=== PATIENT | female | born 1990 | race Caucasian/White ===

== ENCOUNTER 2022-04-12 14:47 | Emergency (ER) | payer MEDICAID, SELFPAY ==
[2022-04-12 14:48] VITALS: BP 145/83; PULSE 108; RESP 18; TEMP 37.2; O2SAT 98; BMI 29.8
--- NOTE | 2022-04-12 15:31 | ED.EYEPROB ---
HPI - Eye Problem General Chief complaint: Eye Problems <Amelie Renner NP - Last Filed: 04/12/22 18:33> Stated complaint: EYE ISSUE <Amelie Renner NP - Last Filed: 04/12/22 18:33> Time Seen by Provider: 04/12/22 15:04 <Amelie Renner NP - Last Filed: 04/12/22 18:33> Source: patient and family <Amelie Renner NP - Last Filed: 04/12/22 18:33> Mode of arrival: ambulatory <Amelie Renner NP - Last Filed: 04/12/22 18:33> Limitations: no limitations <Amelie Renner NP - Last Filed: 04/12/22 18:33> History of Present Illness HPI Narrative: this is a 32-year-old female who reports a left-sided headache behind her eye for the last 5 days with left ear pain and left facial pain with sinus pressure. Yesterday when she woke up she noticed area around her left eye was swollen and painful. She also reports some pain in the eye and when she moves her eye she feels that she has blurry vision in the peripheral field. No drainage from the eye, fevers, chills. Patient does not use any contacts. She does have history of astigmatism in is supposed to use corrective lenses but does not. She denies any history of migraines. She also noted a rash to the left side of the forehead which Is painful. No associated burning or itching of the rash <Amelie Renner NP - Last Filed: 04/12/22 18:33> Related Data Home medications: Previous Rx's Medication Instructions Recorded amoxicillin 875 mg-potassium 1 tab PO BID 10 days #20 tabs 04/12/22 clavulanate 125 mg tablet valacyclovir 1 gram tablet 1,000 mg PO BID #14 tabs 04/12/22 (Valtrex) <Amelie Renner NP - Last Filed: 04/12/22 18:33> Allergies/adverse reactions: Allergies Allergy/AdvReac Type Severity Reaction Status Date / Time sulfamethoxazole Allergy Unknown UNKNOWN Unverified 01/05/20 19:37 [From BACTRIM] trimethoprim [From BACTRIM] Allergy Unknown UNKNOWN Unverified 01/05/20 19:37 <Amelie Renner NP - Last Filed: 04/12/22 18:33> Review of Systems Review of Systems: Yes all other systems are reviewed and are negative <Amelie Renner NP - Last Filed: 04/12/22 18:33> Constitutional: Constitutional: Reports no additional constitutional complaints, Denies body ache(s), Denies chills, Denies fever(s), Reports headache(s) and Denies weakness <Amelie Renner NP - Last Filed: 04/12/22 18:33> Eyes: Eyes: Reports no additional eye complaints, Reports blurry vision, Denies change in vision, Denies eye discharge and Reports eye pain <Amelei Renner NP - Last Filed: 04/12/22 18:33> ENT: Reports system reviewed and no additional complaints, except as documented, Denies dizziness, Reports otalgia, Reports headache(s), Reports nasal congestion, Denies nasal discharge, Denies neck pain, Reports sinus pain and Reports sinus pressure <Amelie Renner NP - Last Filed: 04/12/22 18:33> Cardiovascular: Cardiovascular: Reports no additional cardiovascular complaints, Denies chest pain, Denies leg edema and Denies dyspnea <Amelie Renner NP - Last Filed: 04/12/22 18:33> Respiratory: Respiratory: Reports no additional respiratory complaints, Denies cough and Denies dyspnea <Amelie Renner NP - Last Filed: 04/12/22 18:33> Gastrointestinal: Gastrointestinal: Reports no additional gastrointestinal complaints, Denies abdominal pain, Denies diarrhea, Denies nausea and Denies vomiting <Amelie Renner NP - Last Filed: 04/12/22 18:33> Genitourinary: Genitourinary: Reports no additional female genitourinary complaints and Denies urinary incontinence <Amelie Renner NP - Last Filed: 04/12/22 18:33> Musculoskeletal: Musculoskeletal: Reports no additional musculoskeletal complaints, Denies back pain, Denies arthralgias, Denies joint swelling, Denies neck pain, Denies numbness and Denies tingling <Amelie Renner NP - Last Filed: 04/12/22 18:33> Integumentary/Breasts: Skin/Breast: Reports system reviewed and no additional complaints, except as docu and Reports rash <Amelie Renner NP - Last Filed: 04/12/22 18:33> Neurologic: Reports system reviewed and no additional complaints, except as documented, Denies Abnormal speech present, Denies dizziness, Reports headache(s), Denies numbness, Denies tingling and Denies weakness <Amelie Renner NP - Last Filed: 04/12/22 18:33> [facility] Past Medical History Attestation statement: The following information was validated with the patient. <Amelie Renner NP - Last Filed: 04/12/22 18:33> Source: old records reviewed and nursing notes reviewed <Amelie Renner NP - Last Filed: 04/12/22 18:33> Social History Social History: Social History Smoked in Last 30 Days: Yes Advance Directives: No Advance Directives Information Provided: Yes Patient : No <Amelie Renner NP - Last Filed: 04/12/22 18:33> Physical Exam Vital Signs: Vital Signs: Last Vital Signs Temp 98.6 F 04/12/22 18:58 Pulse 100 04/12/22 18:58 Resp 18 04/12/22 18:58 BP 142/82 H 04/12/22 18:58 Pulse Ox 98 04/12/22 18:58 O2 Del Method 04/12/22 18:58 BMI result Body Mass Index 29.8 <Amelie Renner NP - Last Filed: 04/12/22 18:33> Vital Signs: Last Vital Signs Temp 98.6 F 04/12/22 18:58 Pulse 100 04/12/22 18:58 Resp 18 04/12/22 18:58 BP 142/82 H 04/12/22 18:58 Pulse Ox 98 04/12/22 18:58 O2 Del Method 04/12/22 18:58 BMI result Body Mass Index 29.8 <MARCIA Dean - Last Filed: 04/12/22 20:41> Vital Signs: Last Vital Signs Temp 98.6 F 04/12/22 18:58 Pulse 100 04/12/22 18:58 Resp 18 04/12/22 18:58 BP 142/82 H 04/12/22 18:58 Pulse Ox 98 04/12/22 18:58 O2 Del Method 04/12/22 18:58 BMI result Body Mass Index 29.8 <Stepan García MD - Last Filed: 04/12/22 21:04> Const: General: cooperative, healthy appearing, comfortable and no acute distress <Amelie Renner NP - Last Filed: 04/12/22 18:33> Orientation/consciousness: patient oriented x3 <Amelie Renner NP - Last Filed: 04/12/22 18:33> Limitations: no limitations <Amelie Renner NP - Last Filed: 04/12/22 18:33> HEENT: Head: Yes normal to inspection <Amelie Renner NP - Last Filed: 04/12/22 18:33> Ears: hearing grossly normal bilaterally and TM's normal bilaterally <Amelie Renner NP - Last Filed: 04/12/22 18:33> General nose exam: Normal external nose present <Amelie Renner NP - Last Filed: 04/12/22 18:33> Face and sinus: Yes normal facial exam <Amelie Renner NP - Last Filed: 04/12/22 18:33> Face images: 1. slight swelling with sinus TTP 2. Clustered vesicle like rash <Amelie Renner NP - Last Filed: 04/12/22 18:33> Mouth: Normal oral and palatal mucosa present <Amelie Renner NP - Last Filed: 04/12/22 18:33> Throat: Yes posterior oropharynx normal, Yes tonsils normal and Yes uvula midline <Amelie Renner NP - Last Filed: 04/12/22 18:33> Eyes: Other: vision 20/25 left, 20/20 right IOP 20 bilaterally <Amelie Renner NP - Last Filed: 04/12/22 18:33> General: appearance normal, both eyes and all related structures <Amelie Renner NP - Last Filed: 04/12/22 18:33> Alignment and Position: alignment normal <Amelie Renner NP - Last Filed: 04/12/22 18:33> Periorbital: periorbital findings normal <Amelie Renner NP - Last Filed: 04/12/22 18:33> Eyelids: Yes eyelids normal <Amelie Renner LIBRARY TECHNICAL ASSISTANT - Last Filed: 04/12/22 18:33> Conjunctivae: conjunctivae normal <Amelie Renner NP - Last Filed: 04/12/22 18:33> Sclerae: scleral abnormal left scleral injection <Amelie Renner LIBRARY TECHNICAL ASSISTANT - Last Filed: 04/12/22 18:33> Corneas: corneas normal and fluorescein used (no corneal abrasion/FB or herpes zoster opthalmacus noted ) <Amelie Renner LIBRARY TECHNICAL ASSISTANT - Last Filed: 04/12/22 18:33> Pupils: Equal, round and reactive pupils present <Amelie Renner LIBRARY TECHNICAL ASSISTANT - Last Filed: 04/12/22 18:33> EOM: EOMs intact bilaterally <Amelie Renner NP - Last Filed: 04/12/22 18:33> Direct Ophthalmoscopy: normal light reflex, no photophobia and anterior chamber normal <Amelie Renner NP - Last Filed: 04/12/22 18:33> Neck: Neck: Yes normal visual inspection, Yes full ROM, Yes no lymphadenopathy and Yes no meningeal signs <Amelie Renner NP - Last Filed: 04/12/22 18:33> Chest: Chest palpation & inspection: normal inspection of the chest <Amelie Renner NP - Last Filed: 04/12/22 18:33> Resp: Effort & Inspection: normal respiratory effort <Amelie Renner NP - Last Filed: 04/12/22 18:33> Auscultation: clear to auscultation bilaterally <Amelie Renner NP - Last Filed: 04/12/22 18:33> Cardio: Rate: regular rate <Amelie Renner LIBRARY TECHNICAL ASSISTANT - Last Filed: 04/12/22 18:33> Rhythm: regular rhythm <Amelie Renner LIBRARY TECHNICAL ASSISTANT - Last Filed: 04/12/22 18:33> Peripheral pulses: Peripheral pulses 2+ throughout <Amelie Renner LIBRARY TECHNICAL ASSISTANT - Last Filed: 04/12/22 18:33> GI: Inspection: Yes normal to inspection <Amelie Renner LIBRARY TECHNICAL ASSISTANT - Last Filed: 04/12/22 18:33> Palpation (GI): Soft to palpation and nontender <Amelie Renner LIBRARY TECHNICAL ASSISTANT - Last Filed: 04/12/22 18:33> Auscultation: normal bowel sounds <Amelie Renner NP - Last Filed: 04/12/22 18:33> Back/Spine/Pelvis: Thoracic/Lumbar Spine: thoracic and lumbar spine normal to inspection <Amelie Renner NP - Last Filed: 04/12/22 18:33> Skin: General skin exam: no rashes or lesions noted <Amelie Renner NP - Last Filed: 04/12/22 18:33> Neuro: General: patient oriented x3, moves all extremities, no meningeal signs, no focal motor deficits and normal sensation to monofilament <Amelie Renner LIBRARY TECHNICAL ASSISTANT - Last Filed: 04/12/22 18:33> Cranial nerves: Yes CN's II-XII intact bilaterally, Yes Equal, round and reactive pupils present, Yes Bilaterally intact EOM present, Yes Nystagmus not present, Yes Normal facial strength present and Yes Midline tongue present <Amelie Renner LIBRARY TECHNICAL ASSISTANT - Last Filed: 04/12/22 18:33> Cognition (Neuro): normal cognition <Amelie Renner NP - Last Filed: 04/12/22 18:33> Speech: No Abnormal speech present <Amelie Renner LIBRARY TECHNICAL ASSISTANT - Last Filed: 04/12/22 18:33> Gait exam (Neuro): Normal gait present <Amelie Renner NP - Last Filed: 04/12/22 18:33> Motor exam (neuro): 5/5 motor strength present throughout <Amelie Renner NP - Last Filed: 04/12/22 18:33> Sensory Exam: Normal double simultaneous stimulation for sensation <Amelie Renner NP - Last Filed: 04/12/22 18:33> Extrem: General: Yes normal to inspection <Amelie Renner NP - Last Filed: 04/12/22 18:33> Course Course Course Narrative: patient has an exam consistent with herpes zoster over the left facial area. Will prescribe Valtrex for 7 days. She has no evidence on her eye exam of any herpetic lesion in the eye. There is no evidence of abrasion, foreign body or ulceration of the cornea. Pressures are normal. Improvement of symptoms (SMALLS, eye pain) after some fluids and Toradol. Also consider orbital cellulitis as patient has complaints of sinus pressure and sinus pain, congestion and ear pain on the same affected side as well as some visual change with eye movement. She has normal EOM. She has normal vision in all avalos. She does report some blurriness when she moves her eyes around. CT of the orbits is pending to rule out orbital cellulitis. <Amelie Renner NP - Last Filed: 04/12/22 18:33> Reevaluation(s) Reevaluation #1: 1830-Sign out to Dayne KENNEDY pending imaging <Amelie Renner NP - Last Filed: 04/12/22 18:33> Time: 20:07 <MARCIA Dean - Last Filed: 04/12/22 20:41> Reevaluation #2: CT scan concerning for possible postseptal vs orbital cellulitis however patient does have discomfort with eye movements which is concerning for orbital cellulitis. Pain with eye movements worse with up and down movements. Ordered vanco and ceftriaxone for coverage. Hospitalist here do not feel comfortable with this patient being admitted here. Call out to [facility] who states they are closed for transfer. Will call out to Jessica <MARCIA Dean - Last Filed: 04/12/22 20:41> Time: 20:19 <MARCIA Dean - Last Filed: 04/12/22 20:41> Reevaluation #3: Jessica has no ears, nose and throat coverage. This case was discussed with my attending Dr. García who evaluated the patient, he does not feel as though this warrants IV antibiotics. He recommends Discharging patient home with strict return precautions and having her follow-up with eye doctor. Patient will be discharged home on Augmentin, will give strict return precautions Educated patient on diagnosis and treatment plan, answered all question, patient verbalizes understanding. At this time patient will be discharged home, advised to return with new or worsening symptoms. Educated on worrisome signs and symptoms and when to return. At this time I feel comfortable discharge home. <MARCIA Dean - Last Filed: 04/12/22 20:41> Time: 20:40 <MARCIA Dean - Last Filed: 04/12/22 20:41> Medications Administered Discontinued Medications Generic Name Dose Route Start Last Admin Trade Name Freq PRN Reason Stop Dose Admin Fluorescein Sodium 1 strip 04/12/22 15:23 04/12/22 17:34 Fluorescein Sodium Strip EYE-LEFT 04/12/22 15:24 1 strip ONCE ONE Administration Sodium Chloride 1,000 mls @ 999 mls/hr 04/12/22 15:23 04/12/22 15:49 Ns IV 04/12/22 16:23 999 mls/hr .Q1H1M STA Administration Ceftriaxone Sodium 2 gm/ 50 mls @ 100 mls/hr 04/12/22 20:15 04/12/22 21:01 Sodium Chloride IV 04/12/22 20:44 100 mls/hr ONCE ONE Administration Iohexol 100 ml 04/12/22 18:38 04/12/22 18:38 Iohexol 350 Mg/Ml 100 Ml Infus..Btl IV 04/12/22 18:39 85 ml ONCE ONE Administration Ketorolac Tromethamine 30 mg 04/12/22 15:23 04/12/22 16:08 Ketorolac Tromethamine 30 Mg/Ml Vial IVPUSH 04/12/22 15:24 30 mg ONCE ONE Administration Tetracaine HCl 1 drop 04/12/22 15:23 04/12/22 17:33 Tetracaine Hcl/Pf 0.5% Oph Charley 4 Ml Drops EYE-LEFT 04/12/22 15:24 1 drop ONCE ONE Administration Valacyclovir HCl 1,000 mg 04/12/22 20:20 04/12/22 21:02 Valacyclovir Hcl 1,000 Mg Tablet PO 04/12/22 20:21 1,000 mg ONCE ONE Administration <Amelie Renner NP - Last Filed: 04/12/22 18:33> Medications Administered Discontinued Medications Generic Name Dose Route Start Last Admin Trade Name Melvin PRN Reason Stop Dose Admin Fluorescein Sodium 1 strip 04/12/22 15:23 04/12/22 17:34 Fluorescein Sodium Strip EYE-LEFT 04/12/22 15:24 1 strip ONCE ONE Administration Sodium Chloride 1,000 mls @ 999 mls/hr 04/12/22 15:23 04/12/22 15:49 Ns IV 04/12/22 16:23 999 mls/hr .Q1H1M STA Administration Ceftriaxone Sodium 2 gm/ 50 mls @ 100 mls/hr 04/12/22 20:15 04/12/22 21:01 Sodium Chloride IV 04/12/22 20:44 100 mls/hr ONCE ONE Administration Iohexol 100 ml 04/12/22 18:38 04/12/22 18:38 Iohexol 350 Mg/Ml 100 Ml Infus..Btl IV 04/12/22 18:39 85 ml ONCE ONE Administration Ketorolac Tromethamine 30 mg 04/12/22 15:23 04/12/22 16:08 Ketorolac Tromethamine 30 Mg/Ml Vial IVPUSH 04/12/22 15:24 30 mg ONCE ONE Administration Tetracaine HCl 1 drop 04/12/22 15:23 04/12/22 17:33 Tetracaine Hcl/Pf 0.5% Oph Charley 4 Ml Drops EYE-LEFT 04/12/22 15:24 1 drop ONCE ONE Administration Valacyclovir HCl 1,000 mg 04/12/22 20:20 04/12/22 21:02 Valacyclovir Hcl 1,000 Mg Tablet PO 04/12/22 20:21 1,000 mg ONCE ONE Administration <Dayne Rollins PA - Last Filed: 04/12/22 20:41> Medications Administered Discontinued Medications Generic Name Dose Route Start Last Admin Trade Name Melvin PRN Reason Stop Dose Admin Fluorescein Sodium 1 strip 04/12/22 15:23 04/12/22 17:34 Fluorescein Sodium Strip EYE-LEFT 04/12/22 15:24 1 strip ONCE ONE Administration Sodium Chloride 1,000 mls @ 999 mls/hr 04/12/22 15:23 04/12/22 15:49 Ns IV 04/12/22 16:23 999 mls/hr .Q1H1M STA Administration Ceftriaxone Sodium 2 gm/ 50 mls @ 100 mls/hr 04/12/22 20:15 04/12/22 21:01 Sodium Chloride IV 04/12/22 20:44 100 mls/hr ONCE ONE Administration Iohexol 100 ml 04/12/22 18:38 04/12/22 18:38 Iohexol 350 Mg/Ml 100 Ml Infus..Btl IV 04/12/22 18:39 85 ml ONCE ONE Administration Ketorolac Tromethamine 30 mg 04/12/22 15:23 04/12/22 16:08 Ketorolac Tromethamine 30 Mg/Ml Vial IVPUSH 04/12/22 15:24 30 mg ONCE ONE Administration Tetracaine HCl 1 drop 04/12/22 15:23 04/12/22 17:33 Tetracaine Hcl/Pf 0.5% Oph Charley 4 Ml Drops EYE-LEFT 04/12/22 15:24 1 drop ONCE ONE Administration Valacyclovir HCl 1,000 mg 04/12/22 20:20 04/12/22 21:02 Valacyclovir Hcl 1,000 Mg Tablet PO 04/12/22 20:21 1,000 mg ONCE ONE Administration <Stepan García MD - Last Filed: 04/12/22 21:04> Medical Decision Making Medical Decision Making MDM Narrative: 32-year-old female previously healthy here with complaints of headache behind the left eye for the last 5 days with associated left-sided facial pain, swelling, nasal congestion, left ear pain now with over the last 24 hours swelling around the eye with a vision change which patient describes blurry vision with eye movement. Also describing some eye pain. She denies any difficulty with movement of the eye or any discharge or drainage from the eye. Also noted to have a rash over the left side of the face which is described as painful since yesterday. Normal neuro exam. vital stable. will need labs, CT, eye exam with fluorescein and tetracaine. will give IV fluids, Toradol <Amelie Renner NP - Last Filed: 04/12/22 18:33> 32-year-old female previously healthy here with complaints of headache behind the left eye for the last 5 days with associated left-sided facial pain, swelling, nasal congestion, left ear pain now with over the last 24 hours swelling around the eye with a vision change which patient describes blurry vision with eye movement. Also describing some eye pain. She denies any difficulty with movement of the eye or any discharge or drainage from the eye. Also noted to have a rash over the left side of the face which is described as painful since yesterday. Normal neuro exam. vital stable. will need labs, CT, eye exam with fluorescein and tetracaine. will give IV fluids, Toradol 830 pm patient seen and evaluated clinically patient does not have orbital cellulitis has forehead vascular rash likely herpes zoster goal good range of eye ball movements, sinuses clear, vision intact slightly elevated CRP and sed rate and WBC count will give a dose of Rocephin discharged on Augmentin and followed advised to come back to the ER if worsening of the swelling or redness of the left eye <Stepan García MD - Last Filed: 04/12/22 21:04> Differential Diagnosis Differential Diagnoses: The differential diagnosis associated with the presentation includes <Amelie Renner NP - Last Filed: 04/12/22 18:33> complex migraine, ocular migraine, sinusitis, orbital cellulitis, acute glaucoma <Amelie Renner NP - Last Filed: 04/12/22 18:33> Lab Data MDM Lab Attestation statement: I reviewed the patient's lab results. <Amelie Renner NP - Last Filed: 04/12/22 18:33> Result Diagrams: : 04/12/22 16:36 04/12/22 16:36 <Amelie Renner NP - Last Filed: 04/12/22 18:33> Labs: Lab Results 04/12/22 04/12/22 04/12/22 Range/Units 16:36 16:36 16:36 WBC 4.4 L (4.8-10.8) X10*3/uL RBC 3.84 L (4.20-5.50) X10*6/uL Hgb 13.4 (12.0-16.0) g/dl Hct 40.1 (37.0-47.0) % MCV 104.4 H (80.0-98.0) fL MCH 34.9 H (27.0-33.0) pg MCHC 33.4 (31.0-35.0) g/dl RDW 15.9 (11.0-16.0) % Plt Count 149 L (160-400) X10*3/uL MPV 10.7 (9.4-12.3) fL Immature Gran % (Auto) 0.2 (0.0-0.4) % Neut % (Auto) 58.0 (45-73) % Lymph % (Auto) 31.1 (20-40) % [place] % (Auto) 7.3 (2-11) % Eos % (Auto) 2.3 (0-4) % Baso % (Auto) 1.1 (0-2) % Lymph # (Auto) 1.4 (1.2-4.9) X10*3/uL [place] # (Auto) 0.3 (0.1-1.2) X10*3/uL Eos # (Auto) 0.1 (0.0-0.4) X10*3/uL Baso # (Auto) 0.1 (0.0-0.2) X10*3/uL Abs Immat Gran (auto) 0.01 (0.00-0.03) X10*3/uL Absolute Neuts (auto) 2.6 (2.0-8.3) x10*3/uL Absolute Nucleated RBC 0.000 (0.0-0.012) X10*3/uL Nucleated RBC % (auto) 0.0 (0.0-0.2) /100WBC ESR 2 (0-20) MM/HR Sodium 142 (135-145) mmol/L Potassium 3.4 (3.3-5.1) mmol/L Chloride 104 (96-108) mmol/L Carbon Dioxide 25 (22-29) mmol/L Anion Gap 16 (12-20) BUN 10 (9-16) mg/dL Creatinine 0.75 (0.5-1.4) mg/dL Estim Creat Clear Calc 116.5 Estimated GFR > 60 Random Glucose 128 H (60-115) mg/dL Calcium 9.1 (8.4-10.2) mg/dL C-Reactive Protein 0.57 H (< or = 0.50) mg/dL Beta HCG, Quant mIU/mL 04/12/22 Range/Units 16:36 WBC (4.8-10.8) X10*3/uL RBC (4.20-5.50) X10*6/uL Hgb (12.0-16.0) g/dl Hct (37.0-47.0) % MCV (80.0-98.0) fL MCH (27.0-33.0) pg MCHC (31.0-35.0) g/dl RDW (11.0-16.0) % Plt Count (160-400) X10*3/uL MPV (9.4-12.3) fL Immature Gran % (Auto) (0.0-0.4) % Neut % (Auto) (45-73) % Lymph % (Auto) (20-40) % [place] % (Auto) (2-11) % Eos % (Auto) (0-4) % Baso % (Auto) (0-2) % Lymph # (Auto) (1.2-4.9) X10*3/uL [place] # (Auto) (0.1-1.2) X10*3/uL Eos # (Auto) (0.0-0.4) X10*3/uL Baso # (Auto) (0.0-0.2) X10*3/uL Abs Immat Gran (auto) (0.00-0.03) X10*3/uL Absolute Neuts (auto) (2.0-8.3) x10*3/uL Absolute Nucleated RBC (0.0-0.012) X10*3/uL Nucleated RBC % (auto) (0.0-0.2) /100WBC ESR (0-20) MM/HR Sodium (135-145) mmol/L Potassium (3.3-5.1) mmol/L Chloride (96-108) mmol/L Carbon Dioxide (22-29) mmol/L Anion Gap (12-20) BUN (9-16) mg/dL Creatinine (0.5-1.4) mg/dL Estim Creat Clear Calc Estimated GFR Random Glucose (60-115) mg/dL Calcium (8.4-10.2) mg/dL C-Reactive Protein (< or = 0.50) mg/dL Beta HCG, Quant < 2 mIU/mL <Amelie Renner NP - Last Filed: 04/12/22 18:33> Lab Results 04/12/22 04/12/22 04/12/22 Range/Units 16:36 16:36 16:36 WBC 4.4 L (4.8-10.8) X10*3/uL RBC 3.84 L (4.20-5.50) X10*6/uL Hgb 13.4 (12.0-16.0) g/dl Hct 40.1 (37.0-47.0) % MCV 104.4 H (80.0-98.0) fL MCH 34.9 H (27.0-33.0) pg MCHC 33.4 (31.0-35.0) g/dl RDW 15.9 (11.0-16.0) % Plt Count 149 L (160-400) X10*3/uL MPV 10.7 (9.4-12.3) fL Immature Gran % (Auto) 0.2 (0.0-0.4) % Neut % (Auto) 58.0 (45-73) % Lymph % (Auto) 31.1 (20-40) % [place] % (Auto) 7.3 (2-11) % Eos % (Auto) 2.3 (0-4) % Baso % (Auto) 1.1 (0-2) % Lymph # (Auto) 1.4 (1.2-4.9) X10*3/uL [place] # (Auto) 0.3 (0.1-1.2) X10*3/uL Eos # (Auto) 0.1 (0.0-0.4) X10*3/uL Baso # (Auto) 0.1 (0.0-0.2) X10*3/uL Abs Immat Gran (auto) 0.01 (0.00-0.03) X10*3/uL Absolute Neuts (auto) 2.6 (2.0-8.3) x10*3/uL Absolute Nucleated RBC 0.000 (0.0-0.012) X10*3/uL Nucleated RBC % (auto) 0.0 (0.0-0.2) /100WBC ESR 2 (0-20) MM/HR Sodium 142 (135-145) mmol/L Potassium 3.4 (3.3-5.1) mmol/L Chloride 104 (96-108) mmol/L Carbon Dioxide 25 (22-29) mmol/L Anion Gap 16 (12-20) BUN 10 (9-16) mg/dL Creatinine 0.75 (0.5-1.4) mg/dL Estim Creat Clear Calc 116.5 Estimated GFR > 60 Random Glucose 128 H (60-115) mg/dL Calcium 9.1 (8.4-10.2) mg/dL C-Reactive Protein 0.57 H (< or = 0.50) mg/dL Beta HCG, Quant mIU/mL 04/12/22 Range/Units 16:36 WBC (4.8-10.8) X10*3/uL RBC (4.20-5.50) X10*6/uL Hgb (12.0-16.0) g/dl Hct (37.0-47.0) % MCV (80.0-98.0) fL MCH (27.0-33.0) pg MCHC (31.0-35.0) g/dl RDW (11.0-16.0) % Plt Count (160-400) X10*3/uL MPV (9.4-12.3) fL Immature Gran % (Auto) (0.0-0.4) % Neut % (Auto) (45-73) % Lymph % (Auto) (20-40) % [place] % (Auto) (2-11) % Eos % (Auto) (0-4) % Baso % (Auto) (0-2) % Lymph # (Auto) (1.2-4.9) X10*3/uL [place] # (Auto) (0.1-1.2) X10*3/uL Eos # (Auto) (0.0-0.4) X10*3/uL Baso # (Auto) (0.0-0.2) X10*3/uL Abs Immat Gran (auto) (0.00-0.03) X10*3/uL Absolute Neuts (auto) (2.0-8.3) x10*3/uL Absolute Nucleated RBC (0.0-0.012) X10*3/uL Nucleated RBC % (auto) (0.0-0.2) /100WBC ESR (0-20) MM/HR Sodium (135-145) mmol/L Potassium (3.3-5.1) mmol/L Chloride (96-108) mmol/L Carbon Dioxide (22-29) mmol/L Anion Gap (12-20) BUN (9-16) mg/dL Creatinine (0.5-1.4) mg/dL Estim Creat Clear Calc Estimated GFR Random Glucose (60-115) mg/dL Calcium (8.4-10.2) mg/dL C-Reactive Protein (< or = 0.50) mg/dL Beta HCG, Quant < 2 mIU/mL <MARCIA Dean - Last Filed: 04/12/22 20:41> Lab Results 04/12/22 04/12/22 04/12/22 Range/Units 16:36 16:36 16:36 WBC 4.4 L (4.8-10.8) X10*3/uL RBC 3.84 L (4.20-5.50) X10*6/uL Hgb 13.4 (12.0-16.0) g/dl Hct 40.1 (37.0-47.0) % MCV 104.4 H (80.0-98.0) fL MCH 34.9 H (27.0-33.0) pg MCHC 33.4 (31.0-35.0) g/dl RDW 15.9 (11.0-16.0) % Plt Count 149 L (160-400) X10*3/uL MPV 10.7 (9.4-12.3) fL Immature Gran % (Auto) 0.2 (0.0-0.4) % Neut % (Auto) 58.0 (45-73) % Lymph % (Auto) 31.1 (20-40) % [place] % (Auto) 7.3 (2-11) % Eos % (Auto) 2.3 (0-4) % Baso % (Auto) 1.1 (0-2) % Lymph # (Auto) 1.4 (1.2-4.9) X10*3/uL [place] # (Auto) 0.3 (0.1-1.2) X10*3/uL Eos # (Auto) 0.1 (0.0-0.4) X10*3/uL Baso # (Auto) 0.1 (0.0-0.2) X10*3/uL Abs Immat Gran (auto) 0.01 (0.00-0.03) X10*3/uL Absolute Neuts (auto) 2.6 (2.0-8.3) x10*3/uL Absolute Nucleated RBC 0.000 (0.0-0.012) X10*3/uL Nucleated RBC % (auto) 0.0 (0.0-0.2) /100WBC ESR 2 (0-20) MM/HR Sodium 142 (135-145) mmol/L Potassium 3.4 (3.3-5.1) mmol/L Chloride 104 (96-108) mmol/L Carbon Dioxide 25 (22-29) mmol/L Anion Gap 16 (12-20) BUN 10 (9-16) mg/dL Creatinine 0.75 (0.5-1.4) mg/dL Estim Creat Clear Calc 116.5 Estimated GFR > 60 Random Glucose 128 H (60-115) mg/dL Calcium 9.1 (8.4-10.2) mg/dL C-Reactive Protein 0.57 H (< or = 0.50) mg/dL Beta HCG, Quant mIU/mL 04/12/22 Range/Units 16:36 WBC (4.8-10.8) X10*3/uL RBC (4.20-5.50) X10*6/uL Hgb (12.0-16.0) g/dl Hct (37.0-47.0) % MCV (80.0-98.0) fL MCH (27.0-33.0) pg MCHC (31.0-35.0) g/dl RDW (11.0-16.0) % Plt Count (160-400) X10*3/uL MPV (9.4-12.3) fL Immature Gran % (Auto) (0.0-0.4) % Neut % (Auto) (45-73) % Lymph % (Auto) (20-40) % [place] % (Auto) (2-11) % Eos % (Auto) (0-4) % Baso % (Auto) (0-2) % Lymph # (Auto) (1.2-4.9) X10*3/uL [place] # (Auto) (0.1-1.2) X10*3/uL Eos # (Auto) (0.0-0.4) X10*3/uL Baso # (Auto) (0.0-0.2) X10*3/uL Abs Immat Gran (auto) (0.00-0.03) X10*3/uL Absolute Neuts (auto) (2.0-8.3) x10*3/uL Absolute Nucleated RBC (0.0-0.012) X10*3/uL Nucleated RBC % (auto) (0.0-0.2) /100WBC ESR (0-20) MM/HR Sodium (135-145) mmol/L Potassium (3.3-5.1) mmol/L Chloride (96-108) mmol/L Carbon Dioxide (22-29) mmol/L Anion Gap (12-20) BUN (9-16) mg/dL Creatinine (0.5-1.4) mg/dL Estim Creat Clear Calc Estimated GFR Random Glucose (60-115) mg/dL Calcium (8.4-10.2) mg/dL C-Reactive Protein (< or = 0.50) mg/dL Beta HCG, Quant < 2 mIU/mL <Stepan García MD - Last Filed: 04/12/22 21:04> Critical Care Time Critical Care Time Critical Care Time: Yes <MARCIA Dean - Last Filed: 04/12/22 20:41> Total Critical Care Time: 35 <MARCIA Dean - Last Filed: 04/12/22 20:41> Attestation: I attest to this time spent taking care of the patient, obtaining history, physical, reviewing labs, imaging, speaking to my attending, speaking to specialist. <MARCIA Dean - Last Filed: 04/12/22 20:41> Discharge Plan Discharge Clinical Impression: Herpes zoster, Orbital cellulitis, left <Amelie Renner NP - Last Filed: 04/12/22 18:33> Patient Disposition: Home, Self-Care <Amelie Renner NP - Last Filed: 04/12/22 18:33> Instructions: Shingles (ED), Orbital Cellulitis (ED) <Amelie Renner NP - Last Filed: 04/12/22 18:33> Additional Instructions: warm compresses to the eye Return for worsening symptoms You have mild inflammation of the left eye, report to the ER immediately if worsening of the left eye pain/double vision/fever Take your medications as prescribed. If you were prescribed antibiotics today, it is important that you take your medication to their entirety, do not skip any doses, do not finish them early. Follow-up with your primary care provider this week. Return to the emergency department with new or worsening symptoms. Such as fevers, chills, chest pain, shortness of breath, nausea, vomiting, dizziness, headache, vision changes, lethargy , pain with eye movements, double vision, painful vision, headache, dizziness In case of emergency call 911 Do not put anything in your eye, including contact lenses. <Amelie Renner NP - Last Filed: 04/12/22 18:33> Prescriptions: New valacyclovir [Valtrex] 1 gram tablet 1,000 mg PO BID Qty: 14 0RF amoxicillin-pot clavulanate 875-125 mg tablet 1 tab PO BID 10 Days Qty: 20 0RF <Amelie Renner NP - Last Filed: 04/12/22 18:33> Referrals: [facility]Outside[facility] - [facility] days [facility] [Outside] - 2 days [facility] [Physician] - 2 days Phys[facility]None [Primary Care Provider] - 1 week <Amelie Renner NP - Last Filed: 04/12/22 18:33> Stand Alone Forms: Work/School Release <Amelie Renner NP - Last Filed: 04/12/22 18:33>
[2022-04-12 16:46] LABS: MANUAL DIFF FLAG NO
[2022-04-12 16:47] LABS: Basophils Absolute Auto 0.1 X10*3/uL (0.0-0.2); Basophils Percent Auto 1.1 % (0-2); Eosinophils Absolute Auto 0.1 X10*3/uL (0.0-0.4); Eosinophils Percent Auto 2.3 % (0-4); Hematocrit 40.1 % (37.0-47.0); Hemoglobin 13.4 g/dl (12.0-16.0); Imm Gran Abs Auto 0.01 X10*3/uL (0.00-0.03); Imm Gran Pct Auto 0.2 % (0.0-0.4); Lymphocytes Absolute Auto 1.4 X10*3/uL (1.2-4.9); Lymphocytes Percent Auto 31.1 % (20-40); Mean Corpuscular HGB Conc 33.4 g/dl (31.0-35.0); Mean Corpuscular Hemoglobin 34.9 pg (27.0-33.0); Mean Corpuscular Volume 104.4 fL (80.0-98.0); Mean Platelet Volume 10.7 fL (9.4-12.3); Monocytes Absolute Auto 0.3 X10*3/uL (0.1-1.2); Monocytes Percent Auto 7.3 % (2-11); Neutrophils Absolute Auto 2.6 x10*3/uL (2.0-8.3); Platelet Count 149 X10*3/uL (160-400); Red Blood Count 3.84 X10*6/uL (4.20-5.50); Red Cell Distribution Width 15.9 % (11.0-16.0); White Blood Count 4.4 X10*3/uL (4.8-10.8)
[2022-04-12 17:16] LABS: Anion Gap 16 (12-20); Blood Urea Nitrogen 10 mg/dL (9-16); C Reactive Protein 0.57 mg/dL (< or = 0.50); Calcium 9.1 mg/dL (8.4-10.2); Carbon Dioxide 25 mmol/L (22-29); Chloride 104 mmol/L (96-108); Creatinine Clr Calc Pharmacy 116.5; Estimated Glomerular Filt Rate > 60; Glucose Random 128 mg/dL (60-115); Potassium 3.4 mmol/L (3.3-5.1); Sodium 142 mmol/L (135-145)
[2022-04-12 17:24] LABS: HCG Quantitative < 2 mIU/mL
[2022-04-12 17:36] LABS: Erythrocyte Sedimentation Rate 2 MM/HR (0-20)
--- NOTE | 2022-04-12 18:30 | PC.NURSE ---
patient to CT for images . patient aware of plan of care .
[2022-04-12 18:58] VITALS: BP 142/82; PULSE 100; RESP 18; TEMP 37; O2SAT 98
--- NOTE | 2022-04-12 20:20 | MHC.EDTECH ---
[facility]'s Transfer Line called at 2018 per Patria DAVENPORT, they are closed to transfers at this time. [facility]'s Transfer Line called at 2019 per Patria Davenport spoke with Christi gave patient demographics awaiting a call back at this time.Provider aware
--- NOTE | 2022-04-12 20:32 | MHC.EDTECH ---
Christi from [facility]'s Transfer Line called at 2032 she stated they have no Eye Coverage Patria Davenport made aware.
== END 2022-04-12 22:08 | disposition home or self-care (01) ==
PROVIDERS: Nurse Practitioner Family; Emergency Provider Internal Medicine
DX: B02.8 Zoster with other complications (principal); H05.012 Cellulitis of left orbit
CPT/HCPCS: 36415; 70481; 80048; 84702; 85025; 85652; 86140; 96365; 96375; 99284; J0696; J1885; Q9967

== ENCOUNTER 2023-06-05 09:15 | Emergency (ER) | payer MEDICAID, SELFPAY ==
--- NOTE | ~2023-06-05 | CT_ITS ---
EXAMINATION: CT ABDOMEN AND PELVIS WITHOUT CONTRAST CLINICAL INFORMATION: Pain. Urinary retention. COMPARISON: None available. TECHNIQUE: Multidetector volumetric imaging was performed from the superior aspect of the liver through the pubic symphysis. Sagittal and coronal reformatted images were obtained on the technologist's workstation. This CT examination was performed using dose optimization techniques as appropriate, variously including the following: *Automated exposure control *Adjustment of mA and/or kV according to patient size (this includes techniques or standardized protocols for targeted exams where dose is matched to indication/reason for exam; i.e. extremities or head) *Use of iterative reconstruction technique DLP: 430 mGy-cm FINDINGS: LUNG BASES: The visualized lung bases are unremarkable. LIVER, GALLBLADDER, AND BILIARY TREE: The liver is normal in size, shape, and attenuation. Gallstones. No intrahepatic biliary duct dilatation. Slightly dilated common bile duct measuring 1 cm. PANCREAS: Unremarkable. SPLEEN: Unremarkable. ADRENAL GLANDS: Unremarkable. KIDNEYS AND URETERS: The kidneys are normal in size, shape, and attenuation. No hydronephrosis, hydroureter, or calculi seen. No perinephric stranding. BLADDER: Unremarkable. GASTROINTESTINAL TRACT: The small and large bowel are unremarkable. The appendix is unremarkable. ABDOMINAL WALL: No significant hernia is appreciated. LYMPH NODES: Normal. VASCULAR: Unremarkable. PELVIC VISCERA: Unremarkable. OSSEOUS STRUCTURES: Unremarkable. CT/CT abdomen pelvis wo IV con IMPRESSION: Gallstones. Slightly dilated common bile duct measuring 1 cm. This could be better evaluated with ultrasound if clinically indicated. Fleischner guidelines were followed.
[2023-06-05 09:22] VITALS: BP 179/95; PULSE 125; RESP 18; TEMP 36.5; O2SAT 100; BMI 23.6
[2023-06-05 10:07] LABS: MANUAL DIFF FLAG NO
[2023-06-05 10:09] LABS: Basophils Absolute Auto 0.1 X10*3/uL (0.0-0.2); Basophils Percent Auto 0.9 % (0-2); Eosinophils Percent Auto 0.3 % (0-4); Hemoglobin 16.4 g/dl (12.0-16.0); Imm Gran Abs Auto 0.03 X10*3/uL (0.00-0.03); Imm Gran Pct Auto 0.3 % (0.0-0.4); Lymphocytes Absolute Auto 1.7 X10*3/uL (1.2-4.9); Mean Corpuscular HGB Conc 34.2 g/dl (31.0-35.0); Mean Corpuscular Hemoglobin 32.2 pg (27.0-33.0); Mean Corpuscular Volume 94.1 fL (80.0-98.0); Monocytes Absolute Auto 0.5 X10*3/uL (0.1-1.2); Monocytes Percent Auto 4.7 % (2-11); Neutrophils Absolute Auto 9.1 x10*3/uL (2.0-8.3); Neutrophils Percent Auto 78.8 % (45-73); Platelet Count 221 X10*3/uL (160-400); White Blood Count 11.5 X10*3/uL (4.8-10.8)
[2023-06-05 10:20] LABS: Anion Gap 16 (12-20); Blood Urea Nitrogen 11 mg/dL (9-16); Calcium 9.9 mg/dL (8.4-10.2); Carbon Dioxide 26 mmol/L (22-29); Chloride 102 mmol/L (96-108); Creatinine Clr Calc Pharmacy 79.7; Estimated Glomerular Filt Rate > 60; Glucose Random 103 mg/dL (60-115); Potassium 3.6 mmol/L (3.3-5.1); Sodium 140 mmol/L (135-145)
[2023-06-05 10:48] LABS: Influenza A PCR NEGATIVE (Negative); Influenza B PCR NEGATIVE (Negative); Resp Syncy Virus RNA Qual PCR NEGATIVE (Negative); SARS COV2 PCR INHOUSE NEGATIVE (Negative)
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
[2023-06-05 11:16] VITALS: BP 138/104; PULSE 82; RESP 16; O2SAT 98
[2023-06-05] MEDS: 0.9 % Sodium Chloride 1,000 ML 999 ML IV ×2 (11:23→14:10)
[2023-06-05 11:43] LABS: Alanine Aminotransferase 57 U/L (0-31); Albumin Level 4.7 g/dL (3.5-5.0); Alkaline Phosphatase 112 U/L (39-117); Aspartate Amino Transferase 40 U/L (5-31); Bilirubin Direct 0.4 mg/dL (0.0-0.5); Bilirubin Total 0.9 mg/dL (0.0-1.0); Magnesium 1.9 mg/dL (1.6-2.6)
[2023-06-05] MEDS: ondansetron HCL 4 MG/2 ML VIAL IVPUSH (11:47)
[2023-06-05] MEDS: LORazepam 1 MG TABLET 2 MG PO (11:47)
[2023-06-05 11:50] LABS: HCG Quantitative < 2 mIU/mL
[2023-06-05 13:01] VITALS: BP 161/83; PULSE 102
[2023-06-05 13:03] VITALS: BP 162/76; PULSE 97
[2023-06-05 13:05] VITALS: BP 169/90; PULSE 123
--- NOTE | 2023-06-05 13:16 | ECG_ITS ---
Test Reason : TACHYCARDIA Blood Pressure : / mmHG Vent. Rate : 110 BPM Atrial Rate : 110 BPM P-R Int : 142 ms QRS Dur : 074 ms QT Int : 346 ms P-R-T Axes : 059 029 042 degrees QTc Int : 468 ms Sinus tachycardia Possible Left atrial enlargement Borderline ECG No previous ECGs available Referred By: Polina Ayala Electronically Signed By:Eldon Gresham
--- NOTE | 2023-06-05 16:04 | PC.NURSE ---
Patient ambulating independently to bathroom, 1.5L of fluids infused, orthos negative, NAD at this time. UA to be collected.
--- NOTE | 2023-06-05 16:19 | PC.NURSE ---
Patient previously visualized to return to room with urine sample needed. minutes later, webbing seamer pound net went into room to take vitals, noted patient to not be in room. Staff looked in bathrooms, patient not found. grinding machine operator portable and provider notified patient likely eloped.
[2023-06-11 01:29] LABS: A. Phagocytphilium DNA,RT-PCR NOT DETECTED (NOT DETECTED); Babesia Microti DNA, RT-PCR NOT DETECTED (NOT DETECTED); Borrelia Miyamotoi,DNA RT-PCR NOT DETECTED (NOT DETECTED); E.Chaffeensis DNA RT-PCR NOT DETECTED (NOT DETECTED); Lyme(Borrelia ssp)DNA RT-PCR NOT DETECTED (NOT DETECTED)
== END 2023-06-05 16:41 | disposition left against medical advice (07) ==
PROVIDERS: Physician Assistant Medical; Emergency Provider Student in an Organized Health Care Education/Training Program
DX: R11.2 Nausea with vomiting, unspecified (principal); R33.9 Retention of urine, unspecified; R00.0 Tachycardia, unspecified; Z20.822 Contact with and (suspected) exposure to COVID-19; Z20.828 Contact with and (suspected) exposure to other viral communicable diseases; Z79.899 Other long term (current) drug therapy
CPT/HCPCS: 0241U; 36415; 74176; 80048; 80076; 83735; 84702; 85025; 87468; 87469; 87478; 87484; 87798; 93005; 96361; 96374; 99285; J2405

== ENCOUNTER → 2023-06-05 13:16 | Outpatient (BNV) | payer MEDICAID, SELFPAY | PROVIDERS: Emergency Provider Student in an Organized Health Care Education/Training Program; Visit Provider Internal Medicine Cardiovascular Disease | DX: R00.0 Tachycardia, unspecified (principal) | CPT/HCPCS: 93010 ==

== ENCOUNTER 2023-07-07 12:34 | Emergency (ER) | payer MEDICAID, SELFPAY ==
[2023-07-07 13:28] VITALS: BP 193/99; PULSE 114; RESP 18; TEMP 37.3; O2SAT 100; BMI 24.6
--- NOTE | 2023-07-07 13:33 | ECG_ITS ---
Test Reason : STARTING METHADONE Blood Pressure : / mmHG Vent. Rate : 118 BPM Atrial Rate : 118 BPM P-R Int : 136 ms QRS Dur : 074 ms QT Int : 326 ms P-R-T Axes : 060 032 049 degrees QTc Int : 456 ms Sinus tachycardia Possible Left atrial enlargement Borderline ECG When compared with ECG of 05-JUN-2023 13:28, No significant change was found Referred By: Nat Figueroa Electronically Signed By:ESTHER VELASCO
--- NOTE | 2023-07-07 13:50 | ED_ITS ---
HPI - Medical Clearance General Chief complaint: Medical Clearance Stated complaint: Methadone Time Seen by Provider: 07/07/23 13:50 Source: patient Mode of arrival: ambulatory Limitations: no limitations History of Present Illness HPI Narrative: Patient is a 33-year-old female with history of opioid use disorder presenting to the emergency department requesting medical clearance to start at methadone clinic tomorrow. She reports using 20-30 bags daily. Has been on methadone through [facility] in the past. States she spoke with the clinic and was told if she came to the ED for medical clearance she could start at the clinic tomorrow. Last used 3 bags at 5am today. complaint: medical clearance requested Reason for Medical Clearance: other Traumatic Symptoms: denies traumatic injury Associated Symptoms: other (feels anxious) Treatments Prior to Arrival: other (last used heroin at 5am, 3 bags) Related Information Previous Rx's Medication Instructions Recorded amoxicillin 875 mg-potassium 1 tab PO BID 10 days #20 tabs 04/12/22 clavulanate 125 mg tablet valacyclovir 1 gram tablet 1,000 mg PO BID #14 tabs 04/12/22 (Valtrex) Allergies Allergy/AdvReac Type Severity Reaction Status Date / Time sulfamethoxazole Allergy Unknown UNKNOWN Verified 06/05/23 09:22 [From BACTRIM] trimethoprim [From BACTRIM] Allergy Unknown UNKNOWN Verified 06/05/23 09:22 Review of Systems 2 Review of Systems: As per HPI. Yes all other systems are reviewed and are negative Constitutional: Constitutional: Reports as per HPI [facility] Social History Social History Smoked in Last 30 Days: Yes Use of substances other than those prescribed or required for medical reasons: Yes Substance Use Type: Heroin Substance Use Frequency: Chronic Longstanding Last Used Substance: Hours (ago) Advance Directives: No Patient : No Physical Exam 2 Vital Signs: Vital Signs: Last Vital Signs Temp 99.1 F 07/07/23 13:28 Pulse 126 H 07/07/23 15:46 Resp 18 07/07/23 15:46 BP 156/106 H 07/07/23 15:46 Pulse Ox 100 07/07/23 15:46 O2 Del Method Room Air 07/07/23 15:46 BMI result Body Mass Index 24.6 Vital signs have been reviewed and appear to be correct. Blood pressure elevated. Heart rate tachycardic. Respiratory rate normal. Temperature normal. Oxygen saturation normal. Const: General: cooperative, healthy appearing and no acute distress O rientation/consciousness: oriented to person, oriented to place, oriented to time and patient oriented x3 Limitations: no limitations HEENT: Head: Yes normocephalic and Yes atraumatic Ears: external ears normal General nose exam: Normal external nose present Face and sinus: Yes face symmetric Mouth: oropharynx normal and moist mucous membranes Throat: Yes uvula midline Eyes: Pupils: Equal, round and reactive pupils present Neck: Neck: Yes normal visual inspection and Yes supple Resp: Effort & Inspection: normal respiratory effort and able to speak in complete sentences Auscultation: clear to auscultation bilaterally Cardio: Rate: regular rate Rhythm: regular rhythm Heart sounds: S1 normal heart sound present and S2 normal heart sound present GI: Palpation (GI): Soft to palpation and nontender Auscultation: n ormoactive bowel sounds : General: Yes no CVA tenderness Back/Spine/Pelvis: Back: no CVA tenderness Skin: General skin exam: elasticity normal and turgor normal Neuro: General: oriented to person, oriented to place, oriented to time, patient oriented x3, moves all extremities, no focal motor deficits and CN's II- XI intact bilaterally Cranial nerves: Yes Equal, round and reactive pupils present Cognition (Neuro): normal cognition Extrem: General: Yes full ROM, Yes no pedal edema and Yes no calf tenderness Psych: Mental Status: mental status grossly normal Affect: normal affect Thought process: Normal thought process present Course Course Course Narrative: When RN attempted to discharge patient, patient now complaining of not feeling right, like I'm on Stephanie. When asked about specific symptoms patient complains of feeling like I weight 1,000 pounds, I feel squishy and wet. She also complains of tingling to genital area. Denies any itching, pain or abnormal vaginal discharge. She denies any back or leg pain. Denies fevers. She reports that she only snorts, has never injected drugs. Discussed with patient that she could be experiencing withdrawal symptoms symptoms but she is adamant they are not. She denies headaches, bowel or bladder incontinence or retention, back pain. Plan: labs, viral swabs, UA Reevaluation(s) Reevaluation #1: Magnesium level noted to be 1.4. Patient now admitting to daily use of alcohol. IV magnesium ordered. Slight leukocytosis, no anemia, no other significant electrolyte abnormalities, negative troponin, normal TSH. No evidence of infection on urinalysis. Feel patient is stable for discharge home, instructed to follow-up with primary care provider within the next week to have magnesium level rechecked. Return precautions discussed at bedside. Patient verbalized understanding of and agreement with plan. Time: 17:16 Medications Administered Generic Name Dose Route Start Last Admin Trade Name Freq PRN Reason Stop Dose Admin Magnesium Sulfate 2 gm in 50 mls @ 25 mls/hr 07/07/23 16:44 07/07/23 17:01 Magnesium Sulfate/H2o IV 07/07/23 18:43 25 mls/hr ONCE ONE Administration Discontinued Medications Generic Name Dose Route Start Last Admin Trade Name Freq PRN Reason Stop Dose Admin Methadone HCl 30 mg 07/07/23 14:57 07/07/23 15:42 Methadone Hcl 20 Mg/2 Ml Oral.Conc PO 07/07/23 14:58 30 mg ONCE ONE Administration Naloxone HCl 8 mg 07/07/23 14:57 07/07/23 15:42 Naloxone Hcl Nasal Take Home 4 Mg [place] NOSTRILALT 07/07/23 14:58 8 mg ONCE ONE Administration Medical Decision Making Medical Decision Making [facility] Narrative: Patient is a 33-year-old female with history of opioid use disorder presenting to the emergency department requesting medical clearance to start at methadone clinic tomorrow. On exam patient is awake, A+Ox3, tachycardic, hypertensive, afebrile, normal neurological exam without focal deficits, physical exam findings as above. Given reported symptoms and physical exam findings, initial differential includes opioid use disorder, opioid dependence. EKG shows sinus tachycardia. Urine drug screen positive for opiates, fentanyl, benzodiazepines. Urine negative. Patient medicated with 30 mg of methadone in the emergency department and also provided with take home Narcan and instructions. Patient evaluated by addiction medicine. Patient discharged home with instructions to follow-up at [facility] in the morning. Return precautions discussed at bedside. Patient verbalized understanding of and agreement with plan. *see course* Differential Diagnosis Differential Diagnoses: The differential diagnosis associated with the presentation includes As per [facility] Lab Data [facility] Lab Attestation statement: I reviewed the patient's lab results. As per [facility] 07/07/23 16:10 07/07/23 16:10 Labs: Lab Results 07/07/23 07/07/23 Range/Units 14:42 16:10 WBC 11.1 H (4.8-10.8) X10*3/uL RBC 4.73 (4.20-5.50) X10*6/uL Hgb 15.3 (12.0-16.0) g/dl Hct 45.0 (37.0-47.0) % MCV 95.1 (80.0-98.0) fL MCH 32.3 (27.0-33.0) pg MCHC 34.0 (31.0-35.0) g/dl RDW 12.9 (11.0-16.0) % Plt Count 208 (160-400) X10*3/uL MPV 11.0 (9.4-12.3) fL Immature Gran % (Auto) 0.4 (0.0-0.4) % Neut % (Auto) 78.4 H (45-73) % Lymph % (Auto) 15.9 L (20-40) % [place] % (Auto) 4.1 (2-11) % Eos % (Auto) 0.2 (0-4) % Baso % (Auto) 1.0 (0-2) % Lymph # (Auto) 1.8 (1.2-4.9) X10*3/uL [place] # (Auto) 0.5 (0.1-1.2) X10*3/uL Eos # (Auto) 0.0 (0.0-0.4) X10*3/uL Baso # (Auto) 0.1 (0.0-0.2) X10*3/uL Abs Immat Gran (auto) 0.04 H (0.00-0.03) X10*3/uL Absolute Neuts (auto) 8.7 H (2.0-8.3) x10*3/uL Absolute Nucleated RBC 0.000 (0.0-0.012) X10*3/uL Nucleated RBC % (auto) 0.0 (0.0-0.2) /100WBC Sodium 139 (135-145) mmol/L Potassium 3.5 (3.3-5.1) mmol/L Chloride 103 (96-108) mmol/L Carbon Dioxide 25 (22-29) mmol/L Anion Gap 15 (12-20) BUN 9 (9-16) mg/dL Creatinine 0.79 (0.5-1.4) mg/dL Estim Creat Clear Calc 82.8 Estimated GFR > 60 Random Glucose 113 (60-115) mg/dL Calcium 9.6 (8.4-10.2) mg/dL Magnesium 1.4 L* (1.6-2.6) mg/dL Total Bilirubin 0.8 (0.0-1.0) mg/dL AST 32 H (5-31) U/L ALT 27 (0-31) U/L Alkaline Phosphatase 91 (39-117) U/L Troponin I High Sens < 2.7 (<3.5-17.0) ng/L Total Protein 7.9 (6.5-8.0) g/dL Albumin 4.6 (3.5-5.0) g/dL TSH 0.47 (0.32-4.0) uIU/mL Urine Color Dark Yellow Urine Appearance Clear Urine pH 6.0 (5.0-9.0) Ur Specific [place] >= 1.030 H (1.005-1.025) Urine Protein 30 (1+) H (Neg-Trace) mg/dL Urine Glucose (UA) Negative (Negative) mg/dL Urine Ketones 80 (Negative) mg/dL Urine Blood Negative (Negative) Urine Nitrite Negative (Negative) Ur Leukocyte Esterase Negative (Negative) Urine RBC 0-2 (0-2) /HPF Urine WBC 0-5 (0-5) /HPF Ur Squamous Epith Cells 6-10 (0-2) /HPF Urine Bacteria 2+ (None Seen) Hyaline Casts 0-2 (0-2) /LPF Urine Test NEGATIVE (NEGATIVE) Urine Opiates Screen POSITIVE H (Not Detect) Urine Fentanyl Screen POSITIVE H (Not Detect) Ur Barbiturates Screen Not Detected (Not Detect) Ur Phencyclidine Scrn Not Detected (Not Detect) Ur Amphetamines Screen Not Detected (Not Detect) U Benzodiazepines Scrn POSITIVE H (Not Detect) Urine Cocaine Screen Not Detected (Not Detect) U Marijuana (THC) Screen Not Detected (Not Detect) Ethyl Alcohol < 10 mg/dL Influenza Type A (PCR) NEGATIVE (Negative) Influenza Type B (PCR) NEGATIVE (Negative) RSV RNA Qual (PCR) NEGATIVE (Negative) SARS-CoV-2 RNA (RT-PCR) NEGATIVE (Negative) Independent Interpretation I performed an independent interpretation of an: EKG (sinus tachycardia, rate 118bpm, normal MD interval and QTc) External Record Review External record reviewed: Inpatient record, Office record and Outpatient record Prescription Management I considered prescription management with: Other Discharge Plan Discharge Clinical Impression: Opioid dependence, Hypomagnesemia Patient Disposition: Home, Self-Care Instructions: Methadone (By mouth), Naloxone (Into the nose), Opioid Withdrawal (ED), Opioid Use Disorder (ED) Additional Instructions: You were seen in the emergency department today for medical clearance prior to starting at methadone clinic tomorrow. Your EKG showed sinus tachycardia. Your urine drug screen was positive for opiates, fentanyl, benzodiazepines. Your magnesium level was noted to be low at 1.4. You were given IV magnesium in the emergency department. IT IS IMPORTANT THAT YOU FOLLOW-UP WITH YOUR PRIMARY CARE PROVIDER TO HAVE YOUR MAGNESIUM LEVEL RECHECKED WITHIN 1 WEEK. You were medicated with 30 mg of methadone in the emergency department today. You were seen by our addiction medicine team. Please follow up with the clinic tomorrow as planned. You are being provided with take-home Narcan, please use if needed. Return to the emergency department with any concerning symptoms. Prescriptions: No Action valacyclovir [Valtrex] 1 gram tablet 1,000 mg PO BID Qty: 14 0RF amoxicillin-pot clavulanate 875-125 mg tablet 1 tab PO BID 10 Days Qty: 20 0RF
--- NOTE | 2023-07-07 14:50 | PC.NURSE ---
urine obtained/sent to lab.
[2023-07-07 14:52] LABS: UPreg QC Valid YES; Urine Pregnancy NEGATIVE (NEGATIVE)
[2023-07-07 14:59] LABS: Amphetamine Screen Urine Not Detected (Not Detect); Barbiturates, Urine Not Detected (Not Detect); Benzodiazepines Screen Urine POSITIVE (Not Detect); Cannabinoid Screen Urine Not Detected (Not Detect); Cocaine Screen Urine Not Detected (Not Detect); Fentanyl, urine POSITIVE (Not Detect); Opiate Screen Urine POSITIVE (Not Detect); Phencyclidine Screen Urine Not Detected (Not Detect)
[2023-07-07] MEDS: methADONE HCl 20 MG/2 ML ORAL.CONC 30 MG PO (15:42)
[2023-07-07] MEDS: Naloxone HCl Nasal TAKE HOME 4 MG SPRAY 8 MG NOSTRILALT (15:42)
--- NOTE | 2023-07-07 15:44 | PC.NURSE ---
medication administered per provider order. pt provided w/ take home narcan.
[2023-07-07 15:46] VITALS: BP 156/106; PULSE 126; RESP 18; O2SAT 100
--- NOTE | 2023-07-07 16:01 | MHC.RECOVRN ---
Pts referral sent to [facility].
[2023-07-07 16:23] LABS: MANUAL DIFF FLAG NO
[2023-07-07 16:24] LABS: Basophils Absolute Auto 0.1 X10*3/uL (0.0-0.2); Eosinophils Percent Auto 0.2 % (0-4); Hemoglobin 15.3 g/dl (12.0-16.0); Imm Gran Abs Auto 0.04 X10*3/uL (0.00-0.03); Imm Gran Pct Auto 0.4 % (0.0-0.4); Lymphocytes Absolute Auto 1.8 X10*3/uL (1.2-4.9); Lymphocytes Percent Auto 15.9 % (20-40); Mean Corpuscular Hemoglobin 32.3 pg (27.0-33.0); Mean Corpuscular Volume 95.1 fL (80.0-98.0); Monocytes Absolute Auto 0.5 X10*3/uL (0.1-1.2); Monocytes Percent Auto 4.1 % (2-11); Neutrophils Absolute Auto 8.7 x10*3/uL (2.0-8.3); Neutrophils Percent Auto 78.4 % (45-73); Platelet Count 208 X10*3/uL (160-400); Red Blood Count 4.73 X10*6/uL (4.20-5.50); Red Cell Distribution Width 12.9 % (11.0-16.0); White Blood Count 11.1 X10*3/uL (4.8-10.8)
[2023-07-07 16:26] LABS: Appearance Urine Clear; Color Urine Dark Yellow; Glucose Urine UA Negative (Negative); Leukocyte Esterase Urine Negative (Negative); Nitrite Urine Negative (Negative); Specific Gravity - Urine >= 1.030 (1.005-1.025); UMIC TRIGGER UACC YES; Urine Blood Negative (Negative); Urine Ketones 80 mg/dL (Negative); Urine Protein 30 (1+) mg/dL (Neg-Trace)
--- NOTE | 2023-07-07 16:26 | PC.NURSE ---
pt was waiting for last dose letter/ready to be discharged when she stated that she wasn't feeling well. she then proceeded to tell this RN and [employer], Florence how she doesn't feel right, there are things on the wall, and that she feels hot/cold and mushy. pt verbalizes last using around 0500 this am intranasally. plan of care remains ongoing at this time. labs obtained/sent by [facility] and up to date aside from being tachycardic and slightly hypertensive. pt seems to be in no apparent distress at this time. no sob/wob noted. respirations even and unlabored. call johnson placed within reach.
[2023-07-07 16:41] LABS: Alanine Aminotransferase 27 U/L (0-31); Albumin Level 4.6 g/dL (3.5-5.0); Alkaline Phosphatase 91 U/L (39-117); Anion Gap 15 (12-20); Aspartate Amino Transferase 32 U/L (5-31); Bilirubin Total 0.8 mg/dL (0.0-1.0); Blood Urea Nitrogen 9 mg/dL (9-16); Calcium 9.6 mg/dL (8.4-10.2); Carbon Dioxide 25 mmol/L (22-29); Chloride 103 mmol/L (96-108); Creatinine Clr Calc Pharmacy 82.8; Estimated Glomerular Filt Rate > 60; Glucose Random 113 mg/dL (60-115); Magnesium 1.4 mg/dL (1.6-2.6); Potassium 3.5 mmol/L (3.3-5.1); Sodium 139 mmol/L (135-145); Total Protein 7.9 g/dL (6.5-8.0)
[2023-07-07 16:42] LABS: Bacteria Urine 2+ (None Seen); Hyaline Casts Urine 0-2 /LPF (0-2); WBC Urine 0-5 /HPF (0-5)
[2023-07-07 16:43] LABS: RBC Urine 0-2 /HPF (0-2)
[2023-07-07 16:46] LABS: Troponin-I High Sensitivity < 2.7 ng/L (<3.5-17.0)
[2023-07-07 16:59] LABS: TSH reflex Free T4 0.47 uIU/mL (0.32-4.0)
[2023-07-07] MEDS: Magnesium Sulfate/H2O 2 GM/50 ML PIGGYBACK IV (17:01)
[2023-07-07 17:04] LABS: Influenza A PCR NEGATIVE (Negative); Influenza B PCR NEGATIVE (Negative); Resp Syncy Virus RNA Qual PCR NEGATIVE (Negative); SARS COV2 PCR INHOUSE NEGATIVE (Negative)
--- NOTE | 2023-07-07 17:07 | PC.NURSE ---
20gIV placed in the left forearm - medication administered per provider order.
[2023-07-07 17:18] LABS: Ethanol < 10 mg/dL
[2023-07-07 18:13] VITALS: BP 171/95; PULSE 121; RESP 18; TEMP 36.7; O2SAT 99
[2023-07-07 18:40] VITALS: BP 188/101; PULSE 116; RESP 20; O2SAT 100
[2023-07-07 19:14] VITALS: BP 00/00; PULSE 0; RESP 0; TEMP -17.7; TEMP 0
== END 2023-07-07 19:15 | disposition home or self-care (01) ==
PROVIDERS: Physician Assistant Medical; Registered Nurse Emergency; Emergency Provider Emergency Medicine
DX: F11.29 Opioid dependence with unspecified opioid-induced disorder (principal); E83.42 Hypomagnesemia; R00.0 Tachycardia, unspecified; Z79.899 Other long term (current) drug therapy; Z11.52 Encounter for screening for COVID-19; Z20.822 Contact with and (suspected) exposure to COVID-19
CPT/HCPCS: 0241U; 36415; 80053; 80307; 81001; 81025; 83735; 84443; 84484; 85025; 93005; 96365; 96366; 99284; 99285; J3475

== ENCOUNTER → 2023-07-07 13:33 | Outpatient (BNV) | payer MEDICAID, SELFPAY | PROVIDERS: Emergency Provider Emergency Medicine; Visit Provider Internal Medicine | DX: R00.0 Tachycardia, unspecified (principal) | CPT/HCPCS: 93010 ==